=== PATIENT | male | born 1960 | race Caucasian/White ===

== ENCOUNTER → 2016-08-17 | Outpatient (CLI) | payer MEDICAID ==
[~2016-08-17] MED LIST: ALBUTEROL INH; ATOR10TA9 PO; CHOL100015 PO; CYCL-259 PO; GABA300C10 PO; HYDR-3138 PO; HYDR-3307 PO; IPRA12.9 INH; LEVE100020 PO; LEVE500T53 PO; LOSA50TA6 PO; MULT-658 PO; OMEP-110 PO; PROC25SU25 PR; TOPI100T94 PO; TRIA10.8 NAS; UBID100C19 PO; Vit C PO; ZOLP10TA5 PO; magnesium PO
== END | disposition home or self-care (01) ==
LOC: CFH 10:10
PROVIDERS: ATTEND Internal Medicine Critical Care Medicine
DX: R06.02 Shortness of breath (principal)
CPT/HCPCS: 71020; 94060; 94620; 94726; 94729

== ENCOUNTER → 2016-08-17 | Outpatient (CLI) | payer MEDICAID | END | disposition home or self-care (01) | LOC: CARD 12:04 | PROVIDERS: ATTEND Internal Medicine Critical Care Medicine | DX: Z02.9 Encounter for administrative examinations, unspecified (principal) ==

== ENCOUNTER 2018-06-19 09:18 | Observation (INO) | payer MEDICAID ==
[~2018-06-19] VITALS: Ht 170.2 cm; Wt 112.7 kg
[~2018-06-19 09:18] MED LIST changes: +BACITRACIN OINT 500U/GM, 15 GM ONE; +EPINEPHRINE TOPICAL SOLN 1 MG/ML, 30ML ONE; +FLUORESCEIN SODIUM 500 MG/5 ML ONE; -HYDR-3138 PO; +HYDR-3237 PO; +LEVE500S9 PO; +LIDOCAINE 1%-EPI 1:100K, 20ML ONE; +LOSA50TA14 PO; -LOSA50TA6 PO; +OXYMETAZOLINE NASAL SPRAY 0.05%, 15ML ONE; +PANT40TA5 PO; +TOPI100T8 PO; -TOPI100T94 PO; +TOPI200T6 PO; +UBID100C10 PO; -UBID100C19 PO; +[UNRECOGNIZED DRUG - OTHER] PO
[2018-06-19 09:52] VITALS: BP 121/68
[2018-06-19] MEDS ORDERED: LACTATED RINGERS 1,000 ML IV SCH (10:17)
[2018-06-19] MEDS ORDERED: MIDAZOLAM 1 MG/ML, 2ML ONE (10:45)
[2018-06-19] MEDS ORDERED: FENTANYL PF 250 MCG/5ML ONE (10:46)
[2018-06-19] MEDS ORDERED: ONDANSETRON ODT 8 MG PO PRN (11:00)
[2018-06-19] MEDS ORDERED: ACETAMINOPHEN 325 MG TABLET PO PRN ×2 (11:00→15:30)
[2018-06-19] MEDS ORDERED: FENTANYL PF 100 MCG/2ML IV PRN (11:00)
[2018-06-19] MEDS ORDERED: ONDANSETRON 2MG/ML, 2ML IV PRN (11:00)
[2018-06-19] MEDS ORDERED: DIAZEPAM 5 MG/ML, 2ML IVPush PRN (11:00)
[2018-06-19] MEDS ORDERED: OXYcodone 5 MG/5 ML ORAL.SOL UDC PO PRN (11:00)
[2018-06-19] MEDS ORDERED: HYDROmorphone 2 MG/ML, 1ML IVPush PRN (11:00)
[2018-06-19] MEDS ORDERED: LORazepam 2 MG/ML, 1ML IVPush PRN (11:00)
[2018-06-19] MEDS ORDERED: SUCCINYLCHOLINE 20 MG/ML, 10ML ONE (11:35)
[2018-06-19] MEDS ORDERED: ROCURONIUM 10 MG/ML,10ML ONE (11:35)
[2018-06-19] MEDS ORDERED: DEXAMETHASONE 4 MG/ML, 1ML ONE (11:35)
[2018-06-19] MEDS ORDERED: ONDANSETRON 2MG/ML, 2ML ONE (11:35)
[2018-06-19] MEDS ORDERED: PROPOFOL 10 MG/ML, 20ML ONE (11:35)
[2018-06-19] MEDS ORDERED: PROPOFOL 10 MG/ML, 50ML ONE (11:35)
[2018-06-19] MEDS ORDERED: CLINDAMYCIN 150 MG/ML, 6ML ONE (11:48)
[2018-06-19] MEDS ORDERED: ACETAMINOPHEN 650 MG/20.3 ML UDC ONE (13:23)
[2018-06-19] MEDS ORDERED: OXYcodone 5 MG/5 ML ORAL.SOL UDC ONE (13:23)
[2018-06-19] MEDS ORDERED: FENTANYL PF 100 MCG/2ML ONE (13:31)
[2018-06-19] MEDS ORDERED: HYDROcodone/APAP 5/325 TABLET PO PRN (15:30)
[2018-06-19] MEDS ORDERED: MORPHINE SULFATE 4 MG/ML, 1ML IVPush PRN (15:30)
[2018-06-19] MEDS ORDERED: ONDANSETRON 2MG/ML, 2ML IVPush PRN (15:30)
[2018-06-19] MEDS: IPRATROPIUM 0.5 MG/2.5 ML INHA NPPB SCH ×2 (16:00→22:00)
[2018-06-19] MEDS: LEVETIRACETAM 100 MG/ML ORAL SOL PO SCH (19:36)
[2018-06-19] MEDS: CLINDAMYCIN PMX 600MG/50ML 50 ML IV SCH (19:37)
[2018-06-19] MEDS: TOPIRAMATE 100 MG TABLET PO SCH (19:37)
[2018-06-19] MEDS: GABAPENTIN 300 MG CAPSULE PO SCH (19:38)
[2018-06-19] MEDS: CYCLOBENZAPRINE 10 MG TABLET PO PRN (19:40)
[2018-06-19] MEDS: TOPIRAMATE 25 MG TABLET PO SCH (19:42)
[2018-06-19 20:03] VITALS: BP 110/70
[2018-06-19] MEDS ORDERED: LOSARTAN 50MG TABLET PO SCH (21:00)
[2018-06-19] MEDS ORDERED: ATORVASTATIN 10 MG TABLET PO SCH (21:00)
[2018-06-19] MEDS: LACTATED RINGERS 1,000 ML IV SCH (23:00)
[2018-06-20 00:02] VITALS: BP 114/69
[2018-06-20] MEDS: CLINDAMYCIN PMX 600MG/50ML 50 ML IV SCH ×2 (03:57→11:30)
[2018-06-20] MEDS: LACTATED RINGERS 1,000 ML IV SCH ×2 (04:05→06:57)
[2018-06-20 04:06] VITALS: BP 114/70
[2018-06-20] MEDS ORDERED: PANTOPROZOLE 40MG TABLET PO SCH (06:00)
[2018-06-20] MEDS: GABAPENTIN 300 MG CAPSULE PO SCH (09:46)
[2018-06-20] MEDS: LEVETIRACETAM 100 MG/ML ORAL SOL PO SCH (09:47)
[2018-06-20] MEDS: TOPIRAMATE 25 MG TABLET PO SCH (09:47)
[2018-06-20] MEDS: TOPIRAMATE 100 MG TABLET PO SCH (09:52)
[2018-06-20] MEDS: CYCLOBENZAPRINE 10 MG TABLET PO PRN (09:54)
[2018-06-20 10:32] VITALS: BP 113/66
[2018-06-20 10:40] VITALS: BP 97/64
[2018-06-20] MEDS ORDERED: CLIN300C8 PO (10:41)
[2018-06-20 13:29] VITALS: BP 106/71
== END 2018-06-20 14:40 | disposition home or self-care (01) ==
LOC: OUT 09:18 → 4NOR 14:55 → OUT 23:18 → DCLOUNGE 06-20 14:00
PROVIDERS: ADMIT Otolaryngology; ATTEND Otolaryngology
DX: J01.90 Acute sinusitis, unspecified (principal); G47.30 Sleep apnea, unspecified
CPT/HCPCS: 31201; 31256; 88304; 96365; 96366; G0378; J0330; J1100; J2250; J2405; J2704; J3010; J3490; J7120; S0077